=== PATIENT | female | born 1980 | race Caucasian/White ===

== ENCOUNTER 2017-08-13 22:45 | Emergency (ER) | payer BC ==
[~2017-08-13] VITALS: Ht 165.1 cm; Wt 105.2 kg
[2017-08-13 23:12] VITALS: Ht 165.1 cm; Wt 105.2 kg
[2017-08-13 23:39] VITALS: BP 177/104
== END 2017-08-13 23:58 | disposition left against medical advice (07) ==
LOC: ED 22:45
DX: Z53.21 Procedure and treatment not carried out due to patient leaving prior to being seen by health care provider (principal)

== ENCOUNTER 2017-10-24 07:43 | Emergency (ER) | payer BC ==
[~2017-10-24] VITALS: Ht 162.6 cm; Wt 102.1 kg
[2017-10-24 07:50] VITALS: Ht 162.6 cm; Wt 102.1 kg
[2017-10-24 09:17] VITALS: BP 149/99
== END 2017-10-24 09:17 | disposition home or self-care (01) ==
LOC: ED 07:43
DX: G44.209 Tension-type headache, unspecified, not intractable (principal); I10 Essential (primary) hypertension
CPT/HCPCS: J0780; J1885